=== PATIENT | male | born 1975 | race Caucasian/White ===

== ENCOUNTER 2021-01-20 21:22 | Emergency (ER) | payer MEDICAID ==
[~2021-01-20] VITALS: Ht 165.1 cm; Wt 86.0 kg
[2021-01-20 21:25] VITALS: BP 124/93
[2021-01-20] MEDS ORDERED: MORPHINE SULFATE 4 MG/ML DISP.SYRIN. IV ONE (22:15)
[2021-01-20] MEDS ORDERED: IV RINGERS SOLUTION,LACTATED 1,000 ML IV ONE (22:15)
[2021-01-20] MEDS ORDERED: ONDANSETRON PF 4 MG/2 ML VIAL. IVP ONE (22:15)
--- NOTE | 2021-01-20 22:19 | PHYS DOC ---
Adult General Chief Complaint Chief Complaint: ABDOMINAL PAIN HPI HPI Patient is a 45-year-old male who presents with sharp, abdominal pain in the epigastric and umbilical region over the last 3 days, 7 out of 10 in nature, associated with nausea but no vomiting worsened by eating. States he never had anything like this before. 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 Denies headache, chest pain, shortness of breath, Covid/flu symptoms, diarrhea, vomiting, hematuria or blood in the stool. Endorses mild nausea. Review of Systems Review of Systems Review of systems otherwise unremarkable except noted in HPI Physical Exam Physical Exam Constitutional: Well developed, well nourished, no acute distress, non-toxic appearance. [] HENT: Normocephalic, atraumatic, bilateral external ears normal, oropharynx moist, no oral exudates, nose normal. [] Eyes: conjunctiva normal, no discharge. [] Neck: Normal range of motion, no tenderness, supple, no stridor. [] Cardiovascular:Heart rate regular rhythm, no murmur [] Lungs & Thorax: Bilateral breath sounds clear to auscultation [] Abdomen: soft, epigastric/umbilical tenderness, no masses, no pulsatile masses. [] Skin: Warm, dry, no erythema, no rash. [] Back: no CVA tenderness. [] Extremities: No tenderness, no cyanosis, no clubbing, ROM intact, no edema. [] Neurologic: Alert and oriented X 3, normal motor function, normal sensory function, no focal deficits noted. [] Psychologic: Affect normal, judgement normal, mood normal. [] EKG EKG [] Radiology/Procedures Radiology/Procedures [] Exam: CT of abdomen and pelvis with contrast INDICATION: Abdominal, epigastric pain TECHNIQUE: Sequential axial images through the abdomen and pelvis obtained following the administration of 75 mL of Omni 300 IV contrast. Sagittal and c oronal reformatted images were reconstructed from the axial data and reviewed. Comparisons: None FINDINGS: Heart size is normal. No pericardial. Visualized lung bases are clear. No pleural effusion. Liver, spleen, pancreas, gallbladder and adrenals are unremarkable. No perinephric inflammation or hydronephrosis. No renal or ureteral calculi are identified. Bladder is partially distended and not well evaluated. Prostate is not enlarged. Few scattered diverticula in the sigmoid colon. There is mild wall thickening involving the transverse colon. Appendix is normal. Remainder large and small bowel are unremarkable. No free intra-abdominal air or fluid. No obstruction. Abdominal aorta has a normal course and caliber. Abdominal vasculature is patent. No enlarged intra-abdominal lymph nodes are identified. No suspicious osseous lesions or acute fractures. IMPRESSION: Wall thickening involving the transverse colon favored represent colitis may be infectious or inflammatory in etiology. Colonoscopy posttreatment to ensure no underlying neoplasm recommended. Exposure: One or more of the following in the visualized dose reduction te chniques were utilized for this examination: 1. Automated exposure control 2. Adjustment of the MA and/or KV according to patient size 3. Use of iterative of reconstructive technique Electronically signed by: Karen Mei MD (01/20/2021 10:51 PM) [facility] Heart Score C/O Chest Pain: No Risk Factors: Risk Factors: DM, Current or recent (<one month) smoker, HTN, HLP, family history of CAD, obesity. Risk Scores: Risk Factors: DM, Current or recent (<one month) smoker, HTN, HLP, family history of CAD, obesity. Course & Med Decision Making Course & Med Decision Making Patient is a 45-year-old male who presents with abdominal pain associated with nausea over the last days Vital signs notable for fever. Physical exam noted above. Patient given Zofran for nausea, fluid resuscitation and fentanyl for pain. Laboratory analysis not concerning. CT notable for probable colitis, started on Augmentin in the ED given fever. Discussed all findings with patient advised a course of antibiotics over the next few days as well as dietary restrictions. Given nausea and pain medicine for home. Advised to call primary care physician first thing in the morning to set up a follow-up visit. Gave strict return precautions to the ED. Patient grateful, verbalized understanding and agreed with plan of discharge. [] Dragon Disclaimer Dragon Disclaimer This electronic medical record was generated, in whole or in part, using a voice recognition dictation system. Departure Departure: Impression: Primary Impression: Abdominal pain Additional Impression: Colitis Disposition: 01 DC HOME SELF CARE/HOMELESS Condition: GOOD Referrals: PATRICIA IVERSON MD (PCP) Patient Instructions: Colitis Additional Instructions: Please read all the attached information. As discussed, you could have an infection in your colon called colitis. You were started on antibiotics in the ED, please continue the course as prescribed. Please use your nausea and pain medicine as discussed. Over the next few days please eat a light diet, including clears such as saltine crackers, bread and chicken soup as discussed. Please call your primary care physician in the morning to update on ED visit and set up a follow-up. Please come back to the ED with new or concerning symptoms. Scripts Hydrocodone Bit/Acetaminophen (HYDROCODONE-APAP 5-325 ) 1 Each Tablet 1 TAB PO TID PRN for PAIN for 5 Days, #15 TAB 0 Refills Prov: GLADIS GUTHRIE MD 01/20/21 Ondansetron Hcl (ZOFRAN) 4 Mg Tablet 1 TAB PO PRN Q6HRS PRN for NAUSEA for 7 Days, #20 TAB Prov: GLADIS GUTHRIE MD 01/20/21 Amoxicillin/Potassium Clav (AUGMENTIN 875-125 TABLET) 1 Each Tablet 1 TAB PO BID for colitis for 10 Days, #20 TAB 0 Refills Prov: GLADIS GUTHRIE MD 01/20/21 Problem Qualifiers GLADIS GUTHRIE MD Jan 20, 2021 22:19
[2021-01-20 22:25] LABS: BASO % 0 % (0-3); CALCIUM 8.7 mg/dL (8.5-10.1); CREATININE 0.8 mg/dL (0.7-1.3); EOS # 0.2 x10^3/uL (0.0-0.7); EOS % 2 % (0-3); GFR 104.5; HEMATOCRIT 48.2 % (39.0-53.0); HEMOGLOBIN 16.2 g/dL (13.0-17.5); LYMPH # 3.2 x10^3/uL (1.0-4.8); LYMPH % 33 % (24-48); MEAN CORPUSCULAR HEMOGLOBIN 29 pg (25-35); MEAN CORPUSCULAR HGB CONC 34 g/dL (31-37); MEAN CORPUSCULAR VOLUME 87 fL (79-100); MONO # 0.9 x10^3/uL (0.0-1.1); MONO % 9 % (0-9); NEUT # 5.4 x10^3uL (1.8-7.7); NEUT % 56 % (31-73); PLATELET COUNT 264 x10^3/uL (140-400); POTASSIUM 3.1 mmol/L (3.5-5.1); RED BLOOD COUNT 5.53 x10^6/uL (4.30-5.70); WHITE BLOOD COUNT 9.6 x10^3/uL (4.0-11.0)
[2021-01-20] MEDS ORDERED: IOHEXOL 300 MG/ML 75 ML VIAL. IV ONE (22:30)
[2021-01-20] MEDS ORDERED: CONTRAST GIVEN. MC PRN (22:30)
[2021-01-20 22:33] LABS: ALBUMIN 3.3 g/dL (3.4-5.0); ALBUMIN/GLOBULIN RATIO 0.8 (1.0-1.7); TOTAL BILIRUBIN 0.2 mg/dL (0.2-1.0); TOTAL PROTEIN 7.6 g/dL (6.4-8.2)
[2021-01-20 22:34] LABS: BILIRUBIN,URINE NEG (NEG); CLARITY,URINE CLEAR; COLOR,URINE YELLOW; GLUCOSE,URINE NEG (NEG); UROBILINOGEN,URINE 0.2 mg/dL (0.2 mg/dL)
[2021-01-20 22:35] LABS: BACTERIA,URINE 0 /HPF (0-FEW); NITRITE,URINE NEG (NEG); RBC,URINE 0 /HPF (0-2); SQUAMOUS EPITHELIAL CELL,UR OCC /LPF; WBC,URINE OCC /HPF (0-4)
--- NOTE | 2021-01-20 22:54 | RAD ---
Exam: CT of abdomen and pelvis with contrast INDICATION: Abdominal, epigastric pain TECHNIQUE: Sequential axial images through the abdomen and pelvis obtained following the administrati on of 75 mL of Omni 300 IV contrast. Sagittal and coronal reformatted images were reconstructed from the axial data and reviewed. Comparisons: None FINDINGS: Heart size is normal. No pericardial. Visualized lung bases are clear. No pleural effusion. Liver, spleen, pancreas, gallbladder and adrenals are unremarkable. No perinephric inflammation or hydronephrosis. No renal or ureteral calculi are identified. Bladder is partially distended and not well evaluated. Prostate is not enlarged. Few scattered diverticula in the sigmoid colon. There is mild wall thickening involving the transvers e colon. Appendix is normal. Remainder large and small bowel are unremarkable. No free intra-abdomina l air or fluid. No obstruction. Abdominal aorta has a normal course and caliber. Abdominal vasculature is patent. No enlarged intra-abdominal lymph nodes are identified. No suspicious osseous lesions or acute fractures. IMPRESSION: Wall thickening involving the transverse colon favored represent colitis may be infectious or inflamm atory in etiology. Colonoscopy posttreatment to ensure no underlying neoplasm recommended. Exposure: One or more of the following in the visualized dose reduction techniques were utilized for this examination: 1. Automated exposure control 2. Adjustment of the MA and/or KV according to patient size 3. Use of iterative of reconstructive technique Electronically signed by: Karen Mei MD (01/20/2021 10:51 PM) [facility]
[2021-01-20] MEDS ORDERED: AMOX1TAB61 PO (23:28)
[2021-01-20] MEDS ORDERED: HYDR-2155 PO (23:28)
[2021-01-20] MEDS ORDERED: ONDA4TAB7 PO (23:28)
[2021-01-20] MEDS ORDERED: AMOXICILLIN/K CLAV 875/125MG TABLET. PO ONE (23:30)
== END 2021-01-20 23:51 | disposition home or self-care (01) ==
LOC: ER 21:22
DX: K52.9 Noninfective gastroenteritis and colitis, unspecified (principal)
CPT/HCPCS: 36415; 74177; 80053; 81001; 83690; 85025; 96361; 96374; 96375; 99285; J2270; J2405; J7120; Q9967

== ENCOUNTER 2021-02-06 13:07 | Emergency (ER) | payer MEDICAID ==
[~2021-02-06] VITALS: Ht 165.1 cm; Wt 88.3 kg
[~2021-02-06 13:07] MED LIST: AMOX1TAB61 PO; HYDR-2155 PO; ONDA4TAB7 PO
[2021-02-06 13:32] VITALS: BP 137/93
[2021-02-06] MEDS ORDERED: HYDROcodone/APAP 5/325MG 1 TAB TABLET PO ONE (14:00)
[2021-02-06] MEDS ORDERED: AMOXICILLIN/K CLAV 875/125MG TABLET. PO ONE (14:00)
[2021-02-06] MEDS ORDERED: HYDR-2155 PO (14:05)
[2021-02-06] MEDS ORDERED: AMOX1TAB61 PO (14:05)
--- NOTE | 2021-02-06 14:05 | PHYS DOC ---
Past History Past Medical History: No Pertinent History Past Surgical History: No Surgical History Alcohol Use: None General Adult EDM: Chief Complaint: MULTIPLE COMPLAINTS HPI: HPI: Patient is a 45-year-old male comes emergency department for complaints of right ankle pain and swelling as well as right facial pain. Patient states he has a history of sinusitis and multiple surgeries including correction of septal deviation. Patient states he still has been getting infections though. Was recently seen and treated for colitis. Patient has been taking aspirin powder and NSAIDs for pain. Patient states that he has an old ankle injury that he was not evaluated for from years ago. Occasionally has swelling. Patient states he has been moving recently and on his feet for the past couple of days but denies any injuries or twisting of his ankle. No calf pain or tenderness. Review of Systems: Review of Systems: All other systems within normal limits except for as noted in the HPI Current Medications: Current Meds: Current Medications Medications (Trade) Dose Ordered Sig/Rocio Start Time Stop Time Status Last Admin Dose Admin Acetaminophen/ Hydrocodone Bitart (Lortab 5/325) 1 tab 1X ONCE 02/06/21 14:00 02/06/21 14:01 UNV Amoxicillin/ Clavulanate Potassium (Augmentin 875/ 125mg) 1 tab 1X ONCE 02/06/21 14:00 02/06/21 14:01 UNV Allergies: Allergies: Allergies Coded Allergies Type Severity Reaction Last Updated Verified ciprofloxacin Adverse Reaction Unknown 01/20/21 Yes Physical Exam: PE: Constitutional: Well developed, well nourished, no acute distress, non-toxic appearance. [] HENT: Normocephalic, atraumatic, bilateral external ears normal, nose normal. No nasal congestion, poor dentition with multiple caries, no fluctuance or abscess identified in gingiva. Tenderness over right sinus. [] Eyes: PERRLA, conjunctiva normal, no discharge. [] Neck: No rigidity, supple, no stridor. [] Cardiovascular: Regular rate and rhythm, brisk cap refill [] Lungs & Thorax: Non labored symmetric respirations, no tachypnea or respiratory distress [] Abdomen: Soft, nondistended. Skin: Warm, dry, no erythema, no rash. [] Back: Unremarkable Extremities: No deformities, range of motion grossly intact, no lower extremity edema. Right lower extremity exam: Swelling and tenderness over lateral malleolus, no calf tenderness, Achilles tendon intact, no deformities. [] Neurologic: Alert and oriented X 3, no focal deficits noted. [] Psychologic: Affect normal, judgement normal, mood normal. [] Current Patient Data: Vital Signs: Vital Signs Date Time Temp Pulse Resp B/P (MAP) Pulse Ox O2 Delivery O2 Flow Rate FiO2 02/06/21 13:32 97.9 107 16 137/93 (108) 97 Room Air EKG: EKG: [] Radiology/Procedures: Radiology/Procedures: EXAM: Right ankle, 3 views. HISTORY: Pain and swelling. COMPARISON: None. FINDINGS: 3 views of the right ankle are obtained. There is no fracture, dislocation or subluxation. The ankle mortise is intact. There is no osteochondral lesion. There is a small plantar spur. IMPRESSION: No acute osseous finding. [] Heart Score: C/O Chest Pain: No Risk Factors: Risk Factors: DM, Current or recent (<one month) smoker, HTN, HLP, family history of CAD, obesity. Risk Scores: Score 0 - 3: 2.5% MACE over next 6 weeks - Discharge Home Score 4 - 6: 20.3% MACE over next 6 weeks - Admit for Clinical Observation Score 7 - 10: 72.7% MACE over next 6 weeks - Early Invasive Strategies Course & Med Decision Making: Course & Med Decision Making Pertinent Labs and Imaging studies reviewed. (See chart for details) [] Dragon Disclaimer: Dragon Disclaimer: This electronic medical record was generated, in whole or in part, using a voice recognition dictation system. Departure Departure: Impression: Primary Impression: Pain and swelling of right ankle Additional Impression: Maxillary sinusitis Disposition: 01 HOME / SELF CARE / HOMELESS Condition: STABLE Referrals: PATRICIA IVERSON MD (PCP) Patient Instructions: RICE - Routine Care for Injuries Scripts Hydrocodone Bit/Acetaminophen (HYDROCODONE-APAP 5-325 ) 1 Each Tablet 1 TAB PO PRN Q6HRS PRN for PAIN for 5 Days, #10 TAB 0 Refills Caution: this medication can make you drowsy. Do not drive or operate heavy machinery when using this medication. Prov: RAMIRO JOHN MD 02/06/21 Amoxicillin/Potassium Clav (AUGMENTIN 875-125 TABLET) 1 Each Tablet 1 TAB PO BID for antibiotic for 7 Days, #14 TAB 0 Refills Prov: RAMIRO JOHN MD 02/06/21 RAMIRO JOHN MD Feb 06, 2021 14:05
--- NOTE | 2021-02-06 14:36 | RAD ---
EXAM: Right ankle, 3 views. HISTORY: Pain and swelling. COMPARISON: None. FINDINGS: 3 views of the right ankle are obtained. There is no fracture, dislocation or subluxation. The ankle mortise is intact. There is no osteochondral lesion. There is a small plantar spur. IMPRESSION: No acute osseous finding. Electronically signed by: Xin Kirk MD (02/06/2021 2:34 PM) [id number]
== END 2021-02-06 14:47 | disposition home or self-care (01) ==
LOC: ER 13:07
DX: M25.571 Pain in right ankle and joints of right foot (principal); R22.41 Localized swelling, mass and lump, right lower limb; J32.0 Chronic maxillary sinusitis; Z88.1 Allergy status to other antibiotic agents
CPT/HCPCS: 73610; 99283

== ENCOUNTER 2021-02-14 22:13 | Emergency (ER) | payer MEDICAID | END 2021-02-14 22:30 | disposition left against medical advice (07) | LOC: ER 22:13 | DX: Z04.1 Encounter for examination and observation following transport accident (principal); Z53.21 Procedure and treatment not carried out due to patient leaving prior to being seen by health care provider ==

== ENCOUNTER 2021-02-15 22:00 | Emergency (ER) | payer MEDICAID ==
[~2021-02-15] VITALS: Ht 165.1 cm; Wt 89.0 kg
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
[2021-02-15] MEDS ORDERED: ORPHENADRINE CITRATE 60 MG/2 ML VIAL. IM ONE (22:45)
[2021-02-15] MEDS ORDERED: KETOROLAC 60 MG/2 ML VIAL. IM ONE (22:45)
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
[2021-02-16] MEDS ORDERED: CYCL-331 PO (00:14)
[2021-02-16] MEDS ORDERED: HYDR-1179 PO (00:14)
[2021-02-16 00:30] VITALS: BP 132/68
[2021-02-16 00:31] LABS: BARBITURATES NEG (NEG); BENZODIAZEPINES NEG (NEG); BILIRUBIN,URINE NEG (NEG); CANNABINOIDS NEG (NEG); CLARITY,URINE CLEAR; COCAINE NEG (NEG); COLOR,URINE YELLOW; GLUCOSE,URINE NEG (NEG); METHADONE NEG (NEG); OPIATES NEG (NEG); PHENCYCLIDINE NEG (NEG)
[2021-02-16 00:32] LABS: BACTERIA,URINE 0 /HPF (0-FEW); NITRITE,URINE NEG (NEG); RBC,URINE OCC /HPF (0-2); SQUAMOUS EPITHELIAL CELL,UR OCC /LPF; UROBILINOGEN,URINE 0.2 mg/dL (0.2 mg/dL); WBC,URINE 0 /HPF (0-4)
[2021-02-16 00:43] LABS: AMPHETAMINE/METHAMPHETAMINE NEG (NEG)
== END 2021-02-16 00:30 | disposition home health service (06) ==
LOC: ER 22:00
DX: S33.5XXA Sprain of ligaments of lumbar spine, initial encounter (principal); S33.8XXA Sprain of other parts of lumbar spine and pelvis, initial encounter; M54.42 Lumbago with sciatica, left side; M54.41 Lumbago with sciatica, right side; F41.9 Anxiety disorder, unspecified; M19.90 Unspecified osteoarthritis, unspecified site; F17.210 Nicotine dependence, cigarettes, uncomplicated; Z88.1 Allergy status to other antibiotic agents; V47.9XXA Unspecified car occupant injured in collision with fixed or stationary object in traffic accident, initial encounter; Y93.89 Activity, other specified; Y92.89 Other specified places as the place of occurrence of the external cause; Y99.8 Other external cause status
CPT/HCPCS: 36415; 72131; 80307; 81001; 96372; 99284; J1885; J2360

== ENCOUNTER 2021-05-06 08:42 | Emergency (ER) | payer MEDICAID, OTHER ==
[~2021-05-06] VITALS: Ht 165.1 cm; Wt 90.1 kg
[~2021-05-06 08:42] MED LIST changes: +CYCL-331 PO; +HYDR-1179 PO
[2021-05-06 08:50] VITALS: BP 140/94
[2021-05-06] MEDS ORDERED: ORPHENADRINE CITRATE 60 MG/2 ML VIAL. IM ONE (09:15)
[2021-05-06] MEDS ORDERED: DEXAMETHASONE 4 MG TABLET PO ONE (09:15)
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
[2021-05-06] MEDS ORDERED: HYDROcodone/APAP 5/325MG 1 TAB TABLET PO ONE (09:30)
[2021-05-06] MEDS ORDERED: ORPH-16 PO (09:31)
[2021-05-06] MEDS ORDERED: PRED20TA PO (09:31)
[2021-05-06] MEDS ORDERED: HYDR-2155 PO (09:31)
--- NOTE | 2021-05-06 10:01 | RAD ---
XR ELBOW COMPLETE_RIGHT 3+ VIEWS History: Reason: PAIN, NKI / Spl. Instructions: / History: Technique: 3 views right elbow Comparison: None. Findings: Normal alignment. No fracture. No significant elbow joint effusion. Impression: 1. No acute osseous abnormality. Electronically signed by: Babar Vanessa DO (05/06/2021 9:59 AM) [id number]
== END 2021-05-06 09:46 | disposition home or self-care (01) ==
LOC: ER 08:42
DX: M54.42 Lumbago with sciatica, left side (principal); G89.29 Other chronic pain; M25.521 Pain in right elbow; F41.9 Anxiety disorder, unspecified; M19.90 Unspecified osteoarthritis, unspecified site; F17.200 Nicotine dependence, unspecified, uncomplicated; Z88.1 Allergy status to other antibiotic agents
CPT/HCPCS: 73080; 96372; 99283; J2360; J8540

== ENCOUNTER 2021-06-06 13:21 | Emergency (ER) | payer MEDICAID ==
[~2021-06-06 13:21] MED LIST changes: +ORPH-16 PO; +PRED20TA PO
== END 2021-06-06 13:44 | disposition left against medical advice (07) ==
LOC: ER 13:21
DX: Z20.822 Contact with and (suspected) exposure to COVID-19 (principal); Z53.21 Procedure and treatment not carried out due to patient leaving prior to being seen by health care provider